=== PATIENT | male | born 1965 | race Caucasian/White ===

== ENCOUNTER 2025-08-02 19:01 | Emergency (ER) | payer BC, MEDICAID ==
[~2025-08-02] VITALS: Ht 170.2 cm; Wt 73.3 kg
[2025-08-02 19:21] VITALS: O2SAT 98
[2025-08-02] MEDS ORDERED: DUTA0.5C37 PO (19:34)
[2025-08-02] MEDS ORDERED: FENO145 MT (19:50)
[2025-08-02] MEDS ORDERED: CLOP75TA33 MT (20:06)
[2025-08-02] MEDS ORDERED: ATOR-2 MT (20:09)
[2025-08-02] MEDS ORDERED: CARV6.2548 MT (20:09)
[2025-08-02] MEDS ORDERED: SACU1TAB PO (20:10)
[2025-08-02] MEDS: PREDNISONE 20MG TABLET PO ONE (20:58)
[2025-08-02] MEDS ORDERED: P20 MT (21:07)
[2025-08-02] MEDS ORDERED: TC1C15 TP (21:07)
[2025-08-02 21:25] VITALS: BP 134/79; PULSE 74; RESP 16; TEMP 36.7; O2SAT 100
== END 2025-08-02 21:26 | disposition home or self-care (01) ==
LOC: ER 19:01
DX: L25.9 Unspecified contact dermatitis, unspecified cause (principal); I10 Essential (primary) hypertension; Z79.899 Other long term (current) drug therapy; Z90.49 Acquired absence of other specified parts of digestive tract
CPT/HCPCS: 99283; J7512